=== PATIENT | female | born 2005 | race Caucasian/White ===

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

== ENCOUNTER 2024-03-05 00:05 | Emergency (ER) | payer MEDICAID, SELFPAY ==
[2024-03-05 00:06] VITALS: BP 131/85; PULSE 100; RESP 18; TEMP 36.7; O2SAT 99; BMI 25.6
--- NOTE | 2024-03-05 00:26 | RAD_ITS ---
INDICATION: injury EXAMINATION/TECHNIQUE: X-RAY - RIGHT XR Foot Min 3 Views 3 VIEWS COMPARISON: Ankle radiograph on same day FINDINGS: SOFT TISSUES: Diffuse ankle edema. No radiopaque foreign body. BONES/JOINTS: No acute fracture or subluxation.. Normal alignment. Preservation of the joint space.. No sclerotic or destructive changes observed. RAD/Foot min 3 Views IMPRESSION: Ankle edema compatible sprain. No acute osseous finding. Electronically Signed: Gerry Laird MD at 1:37 EDT ,
--- NOTE | 2024-03-05 00:26 | RAD_ITS ---
INDICATION: injury EXAMINATION/TECHNIQUE: X-RAY - RIGHT XR Ankle Min 3 Views 3 VIEWS COMPARISON: Right foot radiograph on same day FINDINGS: SOFT TISSUES: Diffuse ankle edema. No radiopaque foreign body. BONES/JOINTS: No acute fracture or talar osteochondral defect.. Normal alignment and mortise spacing. Preservation of the joint space.. No sclerotic or destructive changes observed. RAD/Ankle min 3 Views IMPRESSION: Foot radiograph on same . Electronically Signed: Gerry Laird MD at 1:33 EDT ,
--- NOTE | 2024-03-05 00:33 | EDS_ITS ---
HPI History of Present Illness Chief Complaint: Lower Extremity Injury Informant: patient Narrative Narrative: Presents for evaluation right ankle foot injury yesterday afternoon. Running up the driveway inversion injury. No head injuries no other injuries. Ibuprofen taken 4 hours ago. Denies any history of fractures. Reported seen at outside hospital yesterday had ankle x-rays reported negative. She is provided crutches and Liborio wrap. States increasing swelling today. She is concerned. Prior similar symptoms: No PFSH PFSH Medical History no medical history Home Medications ?Medication ?Instructions ?Recorded ?Last Taken ?Type medroxyprogesterone IM 03/05/24 Unknown History Allergy/AdvReac Type Severity Reaction Status Date / Time ondansetron (From Zofran) AdvReac Pain in Verified 03/05/24 00:11 joints Social History Smoking Status: Current every day smoker tobacco type: e-cigarettes ROS ROS ED Constitutional Constitutional ED: Denies chills, fever(s) or sweats Eyes Eyes: Denies change in vision ENT ENT ED: Denies dysphagia or sore throat Cardiovascular Cardiovascular: Denies chest pain, leg edema, palpitations or racing heartbeat Respiratory/Chest Respiratory/Chest: Denies cough, dyspnea or dyspnea on exertion Gastrointestinal Gastrointestinal: Denies abdominal pain, diarrhea, nausea or vomiting Genitourinary Genitourinary ED: Denies dysuria, hematuria or urinary frequency Musculoskeletal Musculoskeletal: Reports extremity pain; Denies back pain or neck pain Integumentary Denies rash or wounds Neurologic Neurologic: Denies headache(s), paresthesias or weakness EXAM Physical Exam Const Vital Signs: 03/05/24 00:06 03/05/24 01:35 Temperature 98.0 F 98.1 F Temperature Source Oral Pulse Rate 100 100 Respiratory Rate 18 18 Blood Pressure 131/85 H 100/79 Blood Pressure Mean 100 86 Pulse Ox 99 100 Oxygen Delivery Method Room Air Positive well nourished and well developed General Appearance ED: well developed and NAD HEENT Reports moist mucous membranes normocephalic and atraumatic Eyes EOMs intact bilaterally and conjunctivae normal General Eye ED: Yes normal appearance of both eyes Neck no lymphadenopathy and supple General: Negative for tenderness Chest Wall Chest: Negative for tenderness Resp normal respiratory effort and normal air movement Effort and Inspection: symmetric chest movement; Negative for respiratory distress Cardio regular rate, regular rhythm and no murmurs Peripheral Pulses: pulses 2+ throughout GI normal to inspection, nondistended, normoactive bowel sounds and non-tender Palpation: Negative for guarding or rebound tenderness present Back/Spine no CVA tenderness and no thoracic nor lumbar tenderness Extremity Extremity Narrative: Right lower extremity: Negative logroll. No knee or proximal fibular tenderness. There is tenderness lateral malleolus no medial malleolus tenderness. There is swelling ecchymosis laterally across the lateral foot. No proximal fifth base tenderness. There is midfoot tenderness. Skin is intact. General Extremety ED: Yes edema and tenderness General Extremity: edema Neuro oriented x3 and no sensory deficits noted Sensorium / Orientation: awake and alert Skin no rashes or lesions noted and no wounds MDM MDM MDM Narrative Medical decision making narrative: Interventions / MDM: Differential diagnosis: Sprain, contusion Diagnosis considered but do not suspect: Fracture however x-ray negative My EKG interpretation: N/A Imaging independently reviewed and interpreted by myself: Three-view x-ray right ankle and 3 view x-ray right foot: Soft tissue swelling, no acute fractures noted. External documents reviewed: N/A Test considered but not ordered:N/A ED course: Additional ice was placed she was provided Tylenol. Unable to pull up any imagings of her reported ankle films from outside hospital. Discussed with patient she would like reimaging's. Three-view right ankle and right foot obtained for further evaluation. X-rays are negative. Liborio wrap and Aircast placed. She has crutches at home. She will continue Tylenol Motrin for symptoms. She is given follow-up with podiatry if needed. All questions were answered. Re-evaluation: stable Disposition discussed with patient/family/significant other: Patient and family Case discussed with consulting clinician: N/A This note was generated with [employer] dictation software. It may contain incorrect words, spelling, and punctuation that were not noted in checking the note before signing. Radiography Diagnostic Testing: Clinical Impression(s) from Imaging Studies Ankle X-Ray 03/05/24 00:26 IMPRESSION: Foot radiograph on same . Electronically Signed: Gerry Laird MD at 1:33 EDT Reading Location ID and State: [facility] / [place] Tel , Service support , Foot X-Ray 03/05/24 00:26 IMPRESSION: Ankle edema compatible sprain. No acute osseous finding. Electronically Signed: Gerry Laird MD at 1:37 EDT Reading Location ID and State: [facility] / [place] Tel , Service support , Discharge Plan Triage Chief Complaint: Lower Extremity Injury ED Provider: Shai Bowman Dx/Rx/DC Orders Clinical Impression: Moderate right ankle sprain, Right foot sprain Instructions: ED Foot Sprain, ED Ankle Sprain (Adult) Prescriptions: No Action medroxyprogesterone [Depo-Provera Contraceptive] IM Primary Care Provider: Nighat Monsalve Referrals: Froylan Larios DPM [Med Staff - Active Staff] - 1-2 Weeks Nighat Monsalve, [Primary Care Provider] - Activity Restrictions/Additional Instructions: X-ray right ankle and right foot are negative for any new acute process. Liborio wrap Aircast continue crutches at home. Continue Motrin 600 mg every 6 hours. May alternate Tylenol up to 1 g every 6 hours in between. Print Language: French Disposition Disposition: Home, Self Care Discharge Date/Time: 03/05/24 01:56
[2024-03-05 01:35] VITALS: BP 100/79; PULSE 100; RESP 18; TEMP 36.7; O2SAT 100
== END 2024-03-05 01:56 | disposition home or self-care (01) ==
PROVIDERS: Emergency Provider Emergency Medicine; Visit Provider Emergency Medicine
DX: S93.401A Sprain of unspecified ligament of right ankle, initial encounter (principal); S93.601A Unspecified sprain of right foot, initial encounter; X58.XXXA Exposure to other specified factors, initial encounter; Y93.02 Activity, running; Y92.89 Other specified places as the place of occurrence of the external cause; F17.290 Nicotine dependence, other tobacco product, uncomplicated
CPT/HCPCS: 73610; 73630; 99283